=== PATIENT | female | born 1960 | race Caucasian/White ===

== ENCOUNTER → 2017-12-20 10:51 | Outpatient (CLI) | payer OTHER, SELFPAY ==
--- NOTE | 2017-12-20 10:51 | DT_ITS ---
This patient was seen during an EMR downtime December 17, 2017 - December 24, 2017. This patient may have a combination of paper and electronic documentation or all paper documentation. All documentation is viewable within the e-chart portion of [facility] for each patient visit.
--- NOTE | 2017-12-20 10:54 | BI_ITS ---
MAMMOGRAPHY - BILATERAL SCREENING REASON FOR EXAM: Female, 57 years old. Routine annual screening examination. PERTINENT HISTORY: Non-contributory. TECHNIQUE: Digital bilateral breast leonel (3D mammographic acquisition) in the CC and MLO projections. 2-D mediolateral oblique (MLO) and craniocaudad (CC) views of both breasts were obtained. CAD: Full Field Digital Mammography with Computer Added Detection was performed. COMPARISON: Comparison is made with prior study July 20, 2016 and July 01, 2015. FINDINGS: Breast Composition: There are scattered areas of fibroglandular density. There are no dominant masses or suspicious calcifications. No other significant abnormalities are identified. There has been no significant change since the prior study. BI/SCREENING MAMM (CAD), BILAT IMPRESSION: Stable bilateral screening mammogram. Yearly follow-up mammogram recommended. (A) ASSESSMENT CATEGORY: BIRADS Category 1: Negative. A letter regarding these results will be sent to the patient by the facility within 30 days. Approximately 10% of breast cancers are not detected by mammography. A normal mammogram should not delay biopsy of a clinically suspicious abnormality. [id number] Electronically Signed: Deion Monahan MD at 8:39 EDT Tel [phone], Service support ,
== END ==
PROVIDERS: Family Provider Internal Medicine; PCP Internal Medicine; Visit Provider Internal Medicine
DX: Z12.31 Encounter for screening mammogram for malignant neoplasm of breast (principal)
CPT/HCPCS: 77063; 77067

== ENCOUNTER → 2018-09-10 11:05 | Outpatient (CLI) | payer OTHER, SELFPAY ==
[2018-09-02 15:48] VITALS: BMI 44.9
== END ==
PROVIDERS: Family Provider Internal Medicine; PCP Internal Medicine; Referring Provider Internal Medicine Cardiovascular Disease; Visit Provider Internal Medicine Cardiovascular Disease
DX: R03.0 Elevated blood-pressure reading, without diagnosis of hypertension (principal)
CPT/HCPCS: 93788

== ENCOUNTER → 2018-11-11 15:49 | Outpatient (CLI) | payer OTHER, SELFPAY ==
[2018-09-02 15:48] VITALS: BMI 44.9
[2018-11-11 16:32] LABS: Anion Gap 7 (5-15); BUN 15 mg/dL (7-18); Chloride 107 mmol/L (98-107); Creatinine, Serum 0.94 mg/dL (0.55-1.02); EST Glomerular Filtration Rate 65 mL/min (>60); Est Glom Filt Rate - Afr Amer 79 mL/min (>60); Glucose 85 mg/dL (74-106); Potassium 3.6 mmol/L (3.5-5.1); Sodium Level 142 mmol/L (136-145)
== END ==
PROVIDERS: Family Provider Internal Medicine; PCP Internal Medicine; Referring Provider Internal Medicine Cardiovascular Disease; Visit Provider Internal Medicine Cardiovascular Disease
DX: E87.6 Hypokalemia (principal)
CPT/HCPCS: 36415; 80048

== ENCOUNTER → 2019-01-09 12:02 | Outpatient (CLI) | payer OTHER, SELFPAY ==
[2018-09-02 15:48] VITALS: BMI 44.9
--- NOTE | 2019-01-09 12:05 | BI_ITS ---
MAMMOGRAPHY - BILATERAL SCREENING 3-D TOMOSYNTHESIS REASON FOR EXAM: Female, 58 years old. Bilateral Screening 3-D tomosynthesis PERTINENT HISTORY: No significant family history. TECHNIQUE: 2-D mammograms and 3-D Tomosynthesis of the breast (s) were performed. CAD was performed. COMPARISON: December 20, 2017, July 20, 2016 FINDINGS: The breast composition is almost entirely fat. Scattered benign calcifications are seen. No dense spiculated masses or suspicious microcalcifications are identified. No architectural distortion is identified. There is no skin thickening or retraction. There has been no significant change since the prior study. BI/SCREEN MAMM (CAD) W/FINA BILAT IMPRESSION: No mammographic signs of malignancy. Routine yearly mammograms recommended. ASSESSMENT CATEGORY: BIRADS Category 2: Benign. A letter regarding these results will be sent to the patient by the facility within 30 days. FOLLOW UP RECOMMENDATION: Yearly follow up mammogram recommended. (A) Approximately 10% of breast cancers are not detected by mammography. A normal mammogram should not delay biopsy of a clinically suspicious abnormality. Electronically Signed: Donnie Landeros MD at 16:57 EDT , Service support ,
== END ==
PROVIDERS: Family Provider Internal Medicine; PCP Internal Medicine; Referring Provider Obstetrics & Gynecology; Visit Provider Obstetrics & Gynecology
DX: Z12.31 Encounter for screening mammogram for malignant neoplasm of breast (principal)
CPT/HCPCS: 77063; 77067

== ENCOUNTER → 2019-05-08 14:52 | Outpatient (CLI) | payer OTHER, SELFPAY ==
[2019-04-14 15:23] VITALS: BMI 43.7
--- NOTE | 2019-05-08 14:55 | ECHOD_ITS ---
Version 2 Reason For Study: pulmonary hypertension Procedure This was a 2D Doppler, Color Flow transthoracic echocardiogram. Exam performed in department. Left Ventricle Normal size and thickness. Apical false tendon noted. The estimated ejection fraction is 65 %. Stage 1 diastolic dysfunction. No regional wall motion abnormalities noted. Right Ventricle Mildly dilated right ventricle. A moderator band is seen in the right ventricle. Normal systolic function. Atria Normal left atrium. Normal right atrium. Normal atrial septum. Mitral Valve The mitral valve is structurally normal. No prolapse or stenosis seen. Trivial mitral valve insufficiency. Tricuspid Valve Normal tricuspid valve. Trivial tricuspid valve insufficiency. Right ventricular systolic pressure estimated to be 37 mmHg. Mild pulmonary hypertension. Aortic Valve Trisinus/trileaflet aortic valve. Mild diffuse aortic valve thickening. Mild aortic stenosis. Pulmonic Valve The pulmonic valve is not well visualized. Great Vessels Normal aortic root. Normal arch. Normal inferior vena cava. Inferior vena cava collapse with sniff. Pericardium/Pleural No pericardial effusion. MMode/2D Measurements & Calculations LVIDd: 4.8 cm IVSd: 1.1 cm LVOT diam: 2.2 cm LVIDs: 2.9 cm LVPWd: 0.98 cm LVOT area: 3.8 cm2 RVDd: 3.7 cm FS: 40.0 % Ao root diam: 3.2 cm LAV(MOD-bp): 51.5 ml LA A4 area: 15.9 cm2 LAV(MOD-bp) Indexed: 24.0 ml/m2 LAV(MOD-sp2): 49.6 ml LAV(MOD-sp4): 44.5 ml LA dimension(2D): 4.2 cm RA A4 area: 15.0 cm2 Time Measurements MV dec time: 0.21 sec Doppler Measurements & Calculations MV E max dm: 91.7 cm/sec Lat Peak E' Dm: 7.2 cm/sec Med Peak E' Dm: 6.6 cm/sec MV A max dm: 105.6 cm/sec E/E' lat: 12.7 E/E' med: 13.8 MV E/A: 0.87 Ao V2 max: 235.7 cm/sec LV V1 max: 147.9 cm/sec SV(LVOT): 121.4 ml Ao max P.2 mmHg LV V1 max P.7 mmHg Ao V2 mean: 173.1 cm/sec LV V1 mean P.5 mmHg Ao mean P.9 mmHg LV V1 mean: 112.7 cm/sec Ao V2 VTI: 51.7 cm LV V1 VTI: 32.3 cm AGUILAR(I,D): 2.3 cm2 AGUILAR(V,D): 2.4 cm2 PA V2 max: 139.6 cm/sec TR max dm: 284.4 cm/sec TR max P.4 mmHg Interpretation Summary The estimated ejection fraction is 65 %. Stage 1 diastolic dysfunction. Trivial mitral valve insufficiency. Trivial tricuspid valve insufficiency. Right ventricular systolic pressure estimated to be 37 mmHg. Mild pulmonary hypertension. Mild aortic stenosis. Compared to echo report dated 07/04/2016, LV function has remained the same, but RVSP has increased from 28 to 37 mm Hg. Aortic stenosis is now mild. Ordering Physician: Nawaf Nava Referring Physician: Tyler George Performed By: Oralia Chu RDCS, RVT
== END ==
PROVIDERS: Family Provider Internal Medicine; PCP Internal Medicine; Referring Provider Internal Medicine Cardiovascular Disease; Visit Provider Internal Medicine Cardiovascular Disease
DX: I10 Essential (primary) hypertension (principal); I44.7 Left bundle-branch block, unspecified; R01.1 Cardiac murmur, unspecified
CPT/HCPCS: 93306

== ENCOUNTER → 2020-07-28 10:17 | Outpatient (CLI) | payer OTHER, SELFPAY ==
[2019-11-21 12:43] VITALS: BMI 42.9
[2020-07-02 09:45] VITALS: BMI 46.1
--- NOTE | 2020-07-28 10:19 | BI_ITS ---
MAMMOGRAPHY - BILATERAL SCREENING REASON FOR EXAM: Female, 60 years old. Routine annual screening examination. PERTINENT HISTORY: Non-contributory. TECHNIQUE: Digital bilateral breast fina (3D mammographic acquisition) in the CC and MLO projections. 2-D mediolateral oblique (MLO) and craniocaudad (CC) views of both breasts were obtained. CAD: Full Field Digital Mammography with Computer Added Detection was performed. COMPARISON: Comparison is made with prior study dated 01/09/2019 and 12/20/2017. FINDINGS: Breast Composition: The breasts are almost entirely fatty. There are no dominant masses or suspicious calcifications. Stable small benign-appearing bilateral axillary lymph nodes. No other significant abnormalities are identified. There has been no significant change since the prior study. BI/SCREEN MAMM (CAD) W/FINA BILAT IMPRESSION: Stable bilateral screening mammogram. Yearly follow-up mammogram recommended. (A) ASSESSMENT CATEGORY: BIRADS Category 2: Benign. A letter regarding these results will be sent to the patient by the facility within 30 days. Approximately 10% of breast cancers are not detected by mammography. A normal mammogram should not delay biopsy of a clinically suspicious abnormality. [id number] Electronically Signed: Deion Monahan, at 12:18 EST , Service support ,
== END ==
PROVIDERS: PCP Internal Medicine; Referring Provider Obstetrics & Gynecology; Visit Provider Obstetrics & Gynecology
DX: Z12.31 Encounter for screening mammogram for malignant neoplasm of breast (principal)
CPT/HCPCS: 77063; 77067

== ENCOUNTER 2021-08-31 15:45 | Outpatient (CLI) | payer BC, SELFPAY ==
--- NOTE | 2021-08-31 15:48 | BI_ITS ---
MAMMOGRAPHY - BILATERAL SCREENING REASON FOR EXAM: Female, 61 years old. Routine annual screening examination. PERTINENT HISTORY: Non-contributory. TECHNIQUE: Digital bilateral breast fina (3D mammographic acquisition) in the CC and MLO projections. 2-D mediolateral oblique (MLO) and craniocaudad (CC) views of both breasts were obtained. CAD: Full Field Digital Mammography with Computer Added Detection was performed. COMPARISON: Comparison is made with prior study dated 07/28/2020 and 01/09/2019. FINDINGS: Breast Composition: The breasts are almost entirely fatty. There are no dominant masses or suspicious calcifications. Stable small benign-appearing bilateral axillary lymph nodes. No other significant abnormalities are identified. There has been no significant change since the prior study. BI/SCRN MAMM (CAD)W/FINA BILAT IMPRESSION: Stable bilateral screening mammogram. Yearly follow-up mammogram recommended. (A) ASSESSMENT CATEGORY: BIRADS Category 2: Benign. A letter regarding these results will be sent to the patient by the facility within 30 days. Approximately 10% of breast cancers are not detected by mammography. A normal mammogram should not delay biopsy of a clinically suspicious abnormality. [id number] Electronically Signed: Deion Monahan MD at 9:02 EST ,
== END 2021-08-31 23:59 | disposition home or self-care (01) ==
LOC: OPBI 15:45
PROVIDERS: PCP Internal Medicine; Referring Provider Obstetrics & Gynecology; Visit Provider Obstetrics & Gynecology
DX: Z12.31 Encounter for screening mammogram for malignant neoplasm of breast (principal)
CPT/HCPCS: 77063; 77067

== ENCOUNTER → 2022-04-10 | Outpatient (CLI) | payer BC, SELFPAY ==
--- NOTE | 2022-04-10 13:52 | ECHOD_ITS ---
Reason For Study: Aortic Stenosis Procedure This was a 2D Doppler, Color Flow transthoracic echocardiogram. Exam performed in department. Left Ventricle Normal LV size. Left ventricular systolic function is normal. The estimated ejection fraction is 55 %. No regional wall motion abnormalities noted. Right Ventricle Normal RV size. Normal systolic function. Atria The left atrium is mildly enlarged. Normal right atrium. Mitral Valve Normal mitral valve. Mild (1+) eccentric mitral valve insufficiency. Tricuspid Valve Normal tricuspid valve. Mild tricuspid valve insufficiency. Pulmonary artery systolic pressure is 34 mmHg. Aortic Valve Trisinus/trileaflet aortic valve. Mild aortic stenosis. Pulmonic Valve Normal pulmonic valve. Great Vessels Normal aortic root. The pulmonary artery is normal size. Normal inferior vena cava. Pericardium/Pleural No pericardial effusion. MMode/2D Measurements & Calculations LVIDd: 4.4 cm IVSd: 0.85 cm LVOT diam: 2.0 cm LVIDs: 2.8 cm LVPWd: 0.94 cm LVOT area: 3.1 cm2 RVDd: 4.0 cm FS: 36.6 % LA dimension: 4.0 cm LAV(MOD-bp): 72.9 ml Aortic Valve Planimetry: 2.3 cm2 LAV(MOD-bp) Indexed: 34.9 ml/m2 LAV(MOD-sp2): 68.0 ml LAV(MOD-sp4): 67.7 ml LA A4 area: 21.4 cm2 RA A4 area: 19.6 cm2 Time Measurements MV dec time: 0.23 sec Doppler Measurements & Calculations MV E max dm: 87.9 cm/sec Lat Peak E' Dm: 7.2 cm/sec Med Peak E' Dm: 8.9 cm/sec MV A max dm: 99.2 cm/sec E/E' lat: 12.3 E/E' med: 9.9 MV E/A: 0.89 MV V2 max: 116.3 cm/sec MV P1/2t max dm: 100.0 cm/sec Ao V2 max: 171.7 cm/sec MV max P.4 mmHg MV P1/2t: 76.8 msec Ao max P.8 mmHg MV V2 mean: 63.7 cm/sec MV dec slope: 381.5 cm/sec2 Ao V2 mean: 115.6 cm/sec MV mean P.9 mmHg Ao mean P.1 mmHg MV V2 VTI: 33.9 cm MVA(P1/2t): 2.9 cm2 Ao V2 VTI: 39.6 cm MVA(VTI): 3.3 cm2 AGUILAR(I,D): 2.8 cm2 AGUILAR(V,D): 2.6 cm2 LV V1 max: 146.4 cm/sec SV(LVOT): 110.6 ml PA V2 max: 128.6 cm/sec LV V1 max P.6 mmHg PA V2 mean: 93.5 cm/sec LV V1 mean P.3 mmHg LV V1 mean: 109.8 cm/sec LV V1 VTI: 36.0 cm TR max dm: 277.7 cm/sec TR max P.0 mmHg ECHO/Echo Complete Interpretation Summary Normal LV size. Left ventricular systolic function is normal. The estimated ejection fraction is 55 %. Pulmonary artery systolic pressure is 34 mmHg. Mild aortic stenosis. Ordering Physician: Soila Meyer Referring Physician: Tyler George M.D. Performed By: Rodrigo Walsh RCS
== END | disposition home or self-care (01) ==
LOC: CVS 13:52
PROVIDERS: PCP Internal Medicine; Referring Provider Nurse Practitioner Gerontology; Visit Provider Nurse Practitioner Gerontology
DX: I35.0 Nonrheumatic aortic (valve) stenosis (principal)
CPT/HCPCS: 93306

== ENCOUNTER → 2025-04-29 | Outpatient (CLI) | payer MEDICARE, OTHER, SELFPAY ==
--- NOTE | 2025-04-29 08:09 | ECHOD_ITS ---
Reason For Study Reason For Study: Aortic Stenosis Procedure This was a 2D Doppler, Color Flow transthoracic echocardiogram. Exam performed in department. Left Ventricle Normal LV size. Apical false tendon noted. The left ventricular ejection fraction is 65 %. Stage 1 diastolic dysfunction. No regional wall motion abnormalities noted. Right Ventricle Normal RV size. Normal systolic function. Atria Normal left atrium. Normal right atrium. Mitral Valve Normal mitral valve. Tricuspid Valve Normal tricuspid valve. Mild (1+) tricuspid valve insufficiency. Pulmonary artery systolic pressure is 24 mmHg. Aortic Valve Trisinus/trileaflet aortic valve. Pulmonic Valve Normal pulmonic valve. Great Vessels Normal aortic root. The pulmonary artery is normal size. Normal inferior vena cava. Pericardium/Pleural No pericardial effusion. MMode/2D Measurements & Calculations LVIDd: 4.3 cm IVSd: 1.1 cm Ao root diam: 3.5 cm LVIDs: 2.8 cm LVPWd: 0.94 cm RVDd: 4.1 cm FS: 36.1 % LAV(MOD-bp): 53.6 ml LVAd ap4: 28.4 cm2 SV(MOD-sp4): 50.7 ml LAV(MOD-bp) Indexed: 28.5 ml/m2 LVLd ap4: 8.0 cm SI(MOD-sp4): 27.0 ml/m2 LAV(MOD-sp2): 55.6 ml EDV(MOD-sp4): 80.7 ml LAV(MOD-sp4): 45.7 ml EDV(sp4-el): 86.0 ml LVAs ap4: 15.4 cm2 LVLs ap4: 6.8 cm ESV(MOD-sp4): 30.0 ml ESV(sp4-el): 30.0 ml EF(MOD-sp4): 62.9 % EF(sp4-el): 65.1 % SV(sp4-el): 55.9 ml LA A4 area: 16.4 cm2 LA dimension(2D): 3.8 cm RA A4 area: 14.1 cm2 TAPSE: 2.4 cm Time Measurements MV dec time: 0.23 sec Doppler Measurements & Calculations MV E max dm: 76.5 cm/sec Lat Peak E' Dm: 8.4 cm/sec Med Peak E' Dm: 6.0 cm/sec MV A max dm: 94.1 cm/sec E/E' lat: 9.1 E/E' med: 12.7 MV E/A: 0.81 MV V2 max: 132.0 cm/sec MV P1/2t max dm: 100.9 cm/sec Ao V2 max: 155.1 cm/sec MV max P.0 mmHg MV P1/2t: 86.3 msec Ao max P.6 mmHg MV V2 mean: 62.0 cm/sec Ao V2 mean: 108.8 cm/sec MV mean P.9 mmHg MV dec slope: 342.8 cm/sec2 Ao mean P.4 mmHg MV V2 VTI: 39.0 cm MVA(P1/2t): 2.6 cm2 Ao V2 VTI: 36.9 cm AV (velocity ratio): 0.83 LV V1 max: 127.6 cm/sec MR max dm: 508.6 cm/sec PA V2 max: 100.1 cm/sec LV V1 max P.5 mmHg MR max P.5 mmHg LV V1 mean P.7 mmHg LV V1 mean: 91.4 cm/sec LV V1 VTI: 30.7 cm TR max dm: 226.2 cm/sec TR max P.7 mmHg ECHO/Echo Complete Interpretation Summary Normal LV size. The left ventricular ejection fraction is 65 %. Stage 1 diastolic dysfunction. Apical false tendon noted. Mild (1+) tricuspid valve insufficiency. Ordering Physician: Soila Meyer Referring Physician: Soila Meyer Performed By: Rodrigo Walsh RCS
== END | disposition home or self-care (01) ==
LOC: CVS 08:09
PROVIDERS: PCP Internal Medicine; Referring Provider Nurse Practitioner Gerontology; Visit Provider Nurse Practitioner Gerontology
DX: I35.0 Nonrheumatic aortic (valve) stenosis (principal)
CPT/HCPCS: 93306